=== PATIENT | male | born 1965 | race Caucasian/White ===

== ENCOUNTER 2024-06-13 10:17 | Emergency (ER) | payer OTHER ==
[2024-06-13 10:25] VITALS: BP 146/81; PULSE 74; RESP 18; TEMP 97.6
--- NOTE | 2024-06-13 10:52 | ED ---
General Adult HPI - General Chief complaint: Headache Stated complaint: Fall/knee/hit head Time Seen by Provider: 06/13/24 10:26 Source: patient, RN notes reviewed Mode of arrival: ambulatory Limitations: no limitations - History of Present Illness Initial comments: This is a 59-year-old male who presents to the emergency department for a headache. Patient presented to [facility] yesterday for heroin abuse. Patient states that another resident there reported that he had fallen down the stairs and hit his head. However, patient states that he never fell and the only injury he sustained was when he bumped his right knee on a bench. They felt the patient's head and noticed a lump. Patient states that this has been there since he was a teenager and is just part of his anatomy. He complains of a headache since being out of his Xanax. Reports chronic aches and pains in his extremities, but states that that is nothing new. Does not believe that he needs to be here as he states that nothing happened and [facility] is overreacting. - Related Data Allergies Allergy/AdvReac Type Severity Reaction Status Date / Time No Known Allergies Allergy Verified 06/13/24 10:25 Review of Systems ROS Statement: Those systems with pertinent positive or pertinent negative responses have been documented in the HPI. ROS Other: All systems not noted in ROS Statement are negative. Past Medical History Past Medical History: Hypertension Additional Past Medical History / Comment(s): lower back spine compression from fall off a ladder, chronic knee pain, hx of heroin abuse, History of Any Multi-Drug Resistant Organisms: None Reported Past Surgical History: Hernia Repair Additional Past Surgical History / Comment(s): Cataract surgery Past Psychological History: Anxiety, Depression Smoking Status: Current every day smoker Past Alcohol Use History: None Reported Past Drug Use History: Heroin General Exam Limitations: no limitations General appearance: alert, in no apparent distress Head exam: Present: atraumatic, normocephalic, normal inspection Eye exam: Present: normal appearance, PERRL, EOMI. Absent: scleral icterus, conjunctival injection, periorbital swelling Respiratory exam: Present: normal lung sounds bilaterally. Absent: respiratory distress, wheezes, rales, rhonchi, stridor Cardiovascular Exam: Present: regular rate, normal rhythm, normal heart sounds. Absent: systolic murmur, diastolic murmur, rubs, gallop, clicks Extremities exam: Present: normal inspection, full ROM, normal capillary refill. Absent: tenderness, pedal edema, joint swelling, calf tenderness Neurological exam: Present: alert, oriented X3, CN II-XII intact Psychiatric exam: Present: normal affect, normal mood Skin exam: Present: warm, dry, intact, normal color. Absent: rash Course Vital Signs 06/13/24 10:21 Temperature 97.6 F Pulse Rate 74 Respiratory 18 Rate Blood Pressure 146/81 O2 Sat by Pulse 91 L Oximetry Medical Decision Making - Medical Decision Making This is a 59-year-old male who presents to the emergency department for a headache. Was pt. sent in by a medical professional or institution? @ -[facility] Did you speak to anyone other than the patient for history? @ -[facility] documentation advising that another client reported seeing the patient falling down the stairs and hitting his head or if the patient is denying this. They noted feeling a bump on the patient's head. Did you review nursing and triage notes? @ -Yes, and I agree, it is accurate with regards to the patient's symptoms. Were old charts reviewed? @ -No Differential Diagnosis? @ -Differential Headache: Migraine, tension, cluster, carbon monoxide, central venous thrombosis, pension karma temporal arteritis, acute closure glaucoma, intercranial hemorrhage, mastoiditis, sinusitis, head injury, this is not meant to be an all-inclusive list. EKG interpreted by me (3pts min.)? @ -Not obtained X-rays interpreted by me (1pt min.)? @ -Not obtained CT interpreted by me (1pt min.)? @ -Not obtained U/S interpreted by me (1pt. min.)? @ -Not obtained What testing was considered but not performed? (CT, X-rays, U/S, labs)? Why? @ -None What meds were considered but not given? Why? @ -None Did you discuss the management of the patient with other professionals? @ -No Did you reconcile home meds? @ -No Was smoking cessation discussed for >3mins.? @ -No Was critical care preformed (if so, how long)? @ -No Were there social determinants of health that impacted care today? How? (Homelessness, low income, unemployed, alcoholism, drug addiction, transportation, low edu. Level, literacy, decrease access to med. care, senior living, rehab)? @ -Rehab, which is where this took place Was there de-escalation of care discussed even if they declined? (Discuss DNR or withdrawal of care, Hospice)? @ -No What co-morbidities impacted this encounter? (DM, HTN, Smoking, COPD, CAD, Cancer, CVA, Hep., AIDS, mental health diagnosis, sleep apnea, morbid obesity)? @ -Drug addiction Was patient admitted / discharged? @ -Discharged. Documentation from [facility] was reviewed. They were concerned that the patient was changing his story multiple times and not making any sense. When I examined the patient he repeated the same story in that he never fell down the stairs and only bumped his right knee on a bench. When nursing staff here went to evaluate the patient they got the same information. On exam he had a small divot in the back of his head consistent with an anatomical variant. Patient reports having this there since he was a teenager. There were no overlying abrasions or skin changes to suggest trauma. States that his headache is due to Xanax withdrawals and he otherwise just has general aches and pains. Patient declines any imaging which I am in agreement with at this time as he continues to deny any fall or other injury that would necessitate imaging. Patient's headache was treated in the emergency department and he was discharged back to [facility] in stable condition. Case discussed with ED attending Dr. Garcia. Return precautions reviewed in depth, the patient is instructed to return to the emergency department with any new, worsening, or concerning symptoms. Patient verbalized understanding. Undiagnosed new problem with uncertain prognosis? @ -None Drug Therapy requiring intensive monitoring for toxicity (Heparin, Nitro, Insulin, Cardizem)? @ -None Were any procedures done? @ -None Diagnosis/symptom? @ -Headache Acute, or Chronic, or Acute on Chronic? @ -Acute Uncomplicated (without systemic symptoms) or Complicated (systemic symptoms)? @ -Uncomplicated Side effects of treatment? @ -None Exacerbation, Progression, or Severe Exacerbation] @ -Not applicable Poses a threat to life or bodily function? @ -No Disposition Clinical Impression: Headache Disposition: HOME SELF-CARE Instructions (If sedation given, give patient instructions): Acute Headache (ED) Additional Instructions: Return to the emergency department with any new, worsening, or concerning symptoms. Alternate with ibuprofen and Tylenol as needed for pain relief. Follow up with your primary care provider in 1-2 days. Is patient prescribed a controlled substance at d/c from ED?: No Referrals: Nonstaff,Physician [Primary Care Provider] - 1-2 days Time of Disposition: 10:51
[2024-06-13] MEDS: ORPHENADRINE 30 MG/ML 2 ML VIAL IM STA (10:55)
[2024-06-13] MEDS: ACETAMINOPHEN TAB 500 MG TAB PO STA (10:55)
[2024-06-13] MEDS: DEXAMETHASONE SOD PHOSPHATE 10 MG/ML 1 ML VIAL IM STA (10:55)
[2024-06-13] MEDS: KETOROLAC 15 MG/ML 1 ML VIAL IM STA (10:56)
== END 2024-06-13 11:13 | disposition home or self-care (01) ==
LOC: EC 10:17
DX: R51.9 Headache, unspecified (principal); F17.200 Nicotine dependence, unspecified, uncomplicated; W10.8XXA Fall (on) (from) other stairs and steps, initial encounter
CPT/HCPCS: 99283; 96372 ×3; J1100; J2360; J1885